=== PATIENT | male | born 1945 | race Caucasian/White ===

== ENCOUNTER 2017-03-24 07:56 | Emergency (ER) | payer MEDICARE ==
[~2017-03-24] VITALS: Ht 175.3 cm; Wt 95.0 kg
[~2017-03-24 07:56] MED LIST: ACET325T14 PO; ASPI-650 PO; BLOOD THINNER PO; CARV12.52 PO; CARV6.2512 PO; FURO-93 PO; Hydrocodone Bit/Acetaminophen PO; LISI5TAB7 PO; NITR0.4T SL; POTA20TA14 PO; POTA20TA91 PO; SPIR25TA PO
[2017-03-24 08:00] VITALS: BP 124/80
[2017-03-24 09:11] LABS: ASPARTATE AMINO TRANSFERASE 23 U/L (15-37); BLOOD UREA NITROGEN 12 mg/dL (7-18)
== END 2017-03-24 11:17 | disposition home or self-care (01) ==
LOC: ED 09:36
DX: N30.00 Acute cystitis without hematuria (principal); I11.0 Hypertensive heart disease with heart failure; I50.9 Heart failure, unspecified
CPT/HCPCS: 36415; 74176; 80053; 81001; 85025; 87086; 99285

== ENCOUNTER → 2017-05-20 | Outpatient (CLI) | payer MEDICARE | END | disposition home or self-care (01) | LOC: CFH 12:50 | PROVIDERS: ATTEND Internal Medicine Cardiovascular Disease | DX: I11.0 Hypertensive heart disease with heart failure (principal); I50.22 Chronic systolic (congestive) heart failure; Z79.01 Long term (current) use of anticoagulants | CPT/HCPCS: 93306 ==

== ENCOUNTER 2017-07-25 12:06 | Inpatient (IN) | payer MEDICARE ==
[~2017-07-25] VITALS: Ht 175.3 cm; Wt 91.0 kg
[2017-07-25] MEDS ORDERED: SODIUM CHLORIDE FLUSH 10ML SYR IVF ONE (12:30)
[2017-07-25 13:10] LABS: BASOPHILS # (AUTO) 0.04 x10^3/uL (0-0.1); BASOPHILS % (AUTO) 1 % (0-1); EOSINOPHILS # (AUTO) 0.35 x10^3/uL (0-0.4); EOSINOPHILS % (AUTO) 4 % (1-7); LYMPHOCYTES # (AUTO) 2.19 x10^3/uL (1-3.4); LYMPHOCYTES % (AUTO) 25 % (22-44); MD NO; MEAN CORPUSCULAR HEMOGLOBIN 32.7 pg (27.5-34.5); MEAN PLATELET VOLUME 11.1 fL (7.4-10.4); MONOCYTES # (AUTO) 0.81 x10^3/uL (0.2-0.8); MONOCYTES % (AUTO) 9 % (2-9); NEUTROPHILS % (AUTO) 61 % (42-75); PLATELET COUNT 163 x10^3/uL (130-400); RED BLOOD COUNT 5.32 x10^6/uL (4.38-5.82); RED CELL DISTRIBUTION WIDTH 13.5 % (9.4-14.8)
[2017-07-25 13:15] LABS: INTERNATIONAL NORMALIZED RATIO 1.03 (0.93-1.1); PROTHROMBIN TIME 10.7 Seconds (9.6-11.5)
[2017-07-25 13:19] LABS: ALBUMIN 3.5 g/dL (3.4-5.0); ANION GAP 5 mmol/L (5-15); CALCIUM 8.1 mg/dL (8.5-10.1); CHLORIDE 109 mmol/L (98-107)
[2017-07-25 13:26] LABS: ALANINE AMINOTRANSFERASE 48 U/L (12-78); ALKALINE PHOSPHATASE 137 U/L (45-117); BILIRUBIN,TOTAL 0.5 mg/dL (0.2-1.0); CREATININE 1.22 mg/dL (0.7-1.3); TOTAL PROTEIN 6.6 g/dL (6.4-8.2)
[2017-07-25 13:27] LABS: TROPONIN I 0.147 ng/mL (0.000-0.045)
[2017-07-25] MEDS ORDERED: ASPIRIN 81 MG TABLET CHEW ONE (13:35)
[2017-07-25] MEDS ORDERED: ASPIRIN 81 MG TABLET CHEW PO ONE (14:00)
[2017-07-25] MEDS ORDERED: OMNIPAQUE 350 MG/ML, 100ML BOTTLE ONE (14:12)
[2017-07-25] MEDS ORDERED: BISACODYL 10 MG SUPP PR PRN (15:00)
[2017-07-25] MEDS ORDERED: PLEASE ENTER WEIGHT MC SCH (15:00)
[2017-07-25] MEDS ORDERED: morphine SULFATE 10 MG/ML, 1ML IVPush PRN (15:00)
[2017-07-25] MEDS ORDERED: ONDANSETRON 2MG/ML, 2ML IVPush PRN (15:00)
[2017-07-25] MEDS ORDERED: ACETAMINOPHEN 325 MG TABLET PO PRN (15:00)
[2017-07-25] MEDS ORDERED: DOCUSATE 100 MG CAPSULE PO PRN (15:00)
[2017-07-25] MEDS ORDERED: HYDROcodone/APAP 5/325 TABLET PO PRN (15:00)
[2017-07-25] MEDS ORDERED: NITROGLYCERIN 0.4 MG BOTTLE (25 TABS) SL PRN (15:00)
[2017-07-25] MEDS ORDERED: LABETALOL 5MG/ML, 20ML IVPush PRN (15:00)
[2017-07-25] MEDS ORDERED: POLYETHYLENE GLYCOL 17 GM PACKET PO PRN (15:00)
[2017-07-25 15:07] VITALS: BP 115/74
[2017-07-25] MEDS: ENOXAPARIN 40 MG/0.4 ML SQ SCH (16:20)
[2017-07-25] MEDS: CARVEDILOL 6.25 MG TABLET PO SCH (17:43)
[2017-07-25 18:23] LABS: TROPONIN I 0.137 ng/mL (0.000-0.045)
[2017-07-25 19:30] VITALS: BP_SYST 102; BP_SYST 95; BP_DIAS 49; BP_DIAS 59
[2017-07-25] MEDS: SODIUM CHLORIDE FLUSH 10ML SYR IVF SCH (21:00)
[2017-07-26 00:53] VITALS: BP 90/58
[2017-07-26 01:08] LABS: TROPONIN I 0.143 ng/mL (0.000-0.045)
[2017-07-26] MEDS ORDERED: ASPIRIN 325 MG TABLET EC PO SCH (06:00)
[2017-07-26 06:06] LABS: CHOL/HDL RATIO 4.9; LDL/HDL RATIO 2.4 (0.5-3.0)
[2017-07-26 06:25] VITALS: BP 98/56
[2017-07-26] MEDS: CARVEDILOL 6.25 MG TABLET PO SCH (06:27)
[2017-07-26 06:40] VITALS: BP 100/65
[2017-07-26] MEDS ORDERED: REGADENOSON 0.4 MG/5 ML SYRINGE ONE (08:20)
[2017-07-26] MEDS ORDERED: LISINOPRIL 5 MG TABLET PO SCH (09:00)
[2017-07-26] MEDS ORDERED: SPIRONOLACTONE 25 MG TABLET PO SCH (09:00)
[2017-07-26] MEDS ORDERED: FUROSEMIDE 20 MG TABLET PO SCH (09:00)
[2017-07-26] MEDS: SODIUM CHLORIDE FLUSH 10ML SYR IVF SCH (10:27)
[2017-07-26 14:57] VITALS: BP 115/75
[2017-07-26] MEDS: ENOXAPARIN 40 MG/0.4 ML SQ SCH (15:00)
== END 2017-07-26 17:26 | disposition home or self-care (01) | DRG 293 ==
LOC: ED 13:27 → EDIP 13:28 → ED 13:51 → 5SO 14:46
PROVIDERS: ADMIT Hospitalist; ATTEND Hospitalist
DX: I11.0 Hypertensive heart disease with heart failure (principal); I44.7 Left bundle-branch block, unspecified; I25.119 Atherosclerotic heart disease of native coronary artery with unspecified angina pectoris; I50.20 Unspecified systolic (congestive) heart failure; Z66 Do not resuscitate; Z82.49 Family history of ischemic heart disease and other diseases of the circulatory system; Z82.5 Family history of asthma and other chronic lower respiratory diseases; Z87.442 Personal history of urinary calculi; Z87.891 Personal history of nicotine dependence; Z95.810 Presence of automatic (implantable) cardiac defibrillator; Z90.49 Acquired absence of other specified parts of digestive tract; Z79.899 Other long term (current) drug therapy
CPT/HCPCS: 36415; 71010; 71275; 78452; 80053; 80061; 83880; 84484; 85025; 85610; 93005; 93017; 99285; J1650; J2785; Q9967; A9502; C9898

== ENCOUNTER 2017-09-09 08:38 | Observation (INO) | payer MEDICARE ==
[~2017-09-09] VITALS: Ht 175.3 cm; Wt 95.4 kg
[2017-09-09] MEDS ORDERED: SODIUM CHLORIDE 0.9% 1,000 ML IV SCH ×2 (09:09)
[2017-09-09 09:19] VITALS: BP 110/70
[2017-09-09] MEDS ORDERED: ASPI-647 PO (09:39)
[2017-09-09] MEDS ORDERED: CARV12.52 PO (09:39)
[2017-09-09 09:45] LABS: ALANINE AMINOTRANSFERASE 33 U/L (12-78); ALBUMIN 3.3 g/dL (3.4-5.0); ANION GAP 8 mmol/L (5-15); CHLORIDE 110 mmol/L (98-107); CREATININE 0.98 mg/dL (0.7-1.3)
[2017-09-09 09:48] LABS: ALKALINE PHOSPHATASE 138 U/L (45-117); BILIRUBIN,TOTAL 0.4 mg/dL (0.2-1.0); TOTAL PROTEIN 6.5 g/dL (6.4-8.2)
[2017-09-09] MEDS ORDERED: FENTANYL PF 250 MCG/5ML ONE (11:50)
[2017-09-09] MEDS ORDERED: MIDAZOLAM 1 MG/ML, 5ML ONE (11:51)
[2017-09-09] MEDS ORDERED: LIDOCAINE 2%, 20ML ONE (12:00)
[2017-09-09] MEDS ORDERED: ACETAMINOPHEN 325 MG TABLET PO PRN ×2 (13:00→13:30)
[2017-09-09] MEDS ORDERED: NITROGLYCERIN 0.4 MG BOTTLE (25 TABS) SL PRN (13:00)
[2017-09-09] MEDS ORDERED: ZOLPIDEM 5MG TABLET PO PRN (13:00)
[2017-09-09] MEDS ORDERED: OXYcodone 5 MG/5 ML ORAL.SOL UDC PO PRN (13:30)
[2017-09-09] MEDS ORDERED: ACETAMINOPHEN 650 MG/20.3 ML UDC ONE (13:31)
[2017-09-09] MEDS ORDERED: OXYcodone 5 MG/5 ML ORAL.SOL UDC ONE ×2 (13:32→13:50)
[2017-09-09] MEDS ORDERED: FENTANYL PF 100 MCG/2ML ONE (13:44)
[2017-09-09] MEDS: FENTANYL PF 100 MCG/2ML IV PRN ×2 (13:45→13:52)
[2017-09-09 14:41] VITALS: BP 110/73
[2017-09-09] MEDS ORDERED: VANCOMYCIN PMX 1GM/200ML 200 ML IVPB ONE (15:30)
[2017-09-09] MEDS ORDERED: OXYcodone/APAP 5/325MG TABLET PO PRN (15:30)
[2017-09-09] MEDS ORDERED: ONDANSETRON 2MG/ML, 2ML IVPush PRN (15:30)
[2017-09-09] MEDS ORDERED: KETOROLAC 30 MG/1 ML IVPush SCH (15:30)
[2017-09-09] MEDS ORDERED: KETOROLAC 30 MG/1 ML ONE (15:33)
[2017-09-09] MEDS ORDERED: DEXAMETHASONE 4 MG/ML, 1ML ONE (16:06)
[2017-09-09] MEDS ORDERED: CEFAZOLIN 1,000 MG ONE (16:06)
[2017-09-09] MEDS ORDERED: ONDANSETRON 2MG/ML, 2ML ONE (16:06)
[2017-09-09] MEDS ORDERED: PROPOFOL 10 MG/ML, 20ML ONE (16:06)
[2017-09-09] MEDS ORDERED: CEFAZOLIN PMX 1GM/50ML 50 ML IVPB SCH (18:00)
[2017-09-09 20:03] VITALS: BP 90/51
[2017-09-09] MEDS: CEFAZOLIN PMX 1GM/50ML 50 ML IVPB SCH (20:12)
[2017-09-09] MEDS: SODIUM CHLORIDE FLUSH 10ML SYR IVF SCH (20:13)
[2017-09-09 20:15] LABS: BASOPHILS # (AUTO) 0.03 x10^3/uL (0-0.1); BASOPHILS % (AUTO) 0 % (0-1); EOSINOPHILS # (AUTO) 0.48 x10^3/uL (0-0.4); EOSINOPHILS % (AUTO) 6 % (1-7); LYMPHOCYTES # (AUTO) 1.96 x10^3/uL (1-3.4); LYMPHOCYTES % (AUTO) 25 % (22-44); MD NO; MEAN CORPUSCULAR HEMOGLOBIN 32.2 pg (27.5-34.5); MEAN CORPUSCULAR HGB CONC 33.6 g/dL (33.2-36.2); MEAN CORPUSCULAR VOLUME 95.7 fL (81-97); MEAN PLATELET VOLUME 11.9 fL (7.4-10.4); MONOCYTES # (AUTO) 0.82 x10^3/uL (0.2-0.8); MONOCYTES % (AUTO) 10 % (2-9); NEUTROPHILS # (AUTO) 4.63 x10^3/uL (1.8-6.8); NEUTROPHILS % (AUTO) 58 % (42-75); PLATELET COUNT 158 x10^3/uL (130-400); RED BLOOD COUNT 5.25 x10^6/uL (4.38-5.82); RED CELL DISTRIBUTION WIDTH 14.3 % (9.4-14.8)
[2017-09-10 02:00] VITALS: BP 118/68
[2017-09-10] MEDS: CEFAZOLIN PMX 1GM/50ML 50 ML IVPB SCH (04:20)
[2017-09-10] MEDS ORDERED: ASPIRIN 325 MG TABLET EC PO SCH (09:00)
[2017-09-10] MEDS ORDERED: CARVEDILOL 12.5 MG TABLET PO SCH (09:00)
[2017-09-10] MEDS ORDERED: FUROSEMIDE 20 MG TABLET PO SCH (09:00)
[2017-09-10] MEDS ORDERED: SPIRONOLACTONE 25 MG TABLET PO SCH (09:00)
[2017-09-10] MEDS ORDERED: LISINOPRIL 5 MG TABLET PO SCH (09:00)
[2017-09-10 09:10] VITALS: BP 102/70
[2017-09-10] MEDS: SODIUM CHLORIDE FLUSH 10ML SYR IVF SCH (09:50)
== END 2017-09-10 10:16 | disposition home or self-care (01) ==
LOC: CACL 08:38 → ORIP 12:58 → 5SO 14:44 → DCLOUNGE 09-10 10:04
PROVIDERS: ADMIT Internal Medicine Cardiovascular Disease; ATTEND Internal Medicine Cardiovascular Disease
DX: T82.191A Other mechanical complication of cardiac pulse generator (battery), initial encounter (principal); I50.22 Chronic systolic (congestive) heart failure; I42.8 Other cardiomyopathies; I47.2 Ventricular tachycardia; Y71.2 Prosthetic and other implants, materials and accessory cardiovascular devices associated with adverse incidents; Y92.89 Other specified places as the place of occurrence of the external cause
CPT/HCPCS: 33264; 36415; 71045; 71046; 80053; 85025; 96365; 96375; C1882; G0378; J0690; J1100; J1885; J2250; J2405; J2704; J3010; J3490

== ENCOUNTER 2017-09-10 23:08 | Emergency (ER) | payer MEDICARE ==
[~2017-09-10] VITALS: Ht 175.3 cm; Wt 95.0 kg
[~2017-09-10 23:08] MED LIST changes: +ASPI-647 PO
[2017-09-10 23:17] VITALS: BP 101/71
== END 2017-09-11 00:31 | disposition home or self-care (01) ==
LOC: ED 09-11 00:10
DX: I97.620 Postprocedural hemorrhage of a circulatory system organ or structure following other procedure (principal); I11.0 Hypertensive heart disease with heart failure; I50.9 Heart failure, unspecified; Y84.8 Other medical procedures as the cause of abnormal reaction of the patient, or of later complication, without mention of misadventure at the time of the procedure
CPT/HCPCS: 99282